=== PATIENT | female | born 1985 | race American Indian/Alaskan Native ===

== ENCOUNTER 2020-04-09 16:48 | Emergency (ER) | payer MEDICAID ==
[2020-04-09 17:13] LABS: Basophils # (Auto) 0.1 K/mm3 (0.0-0.1); Basophils % (Auto) 0.9 % (0.0-1.8); Eosinophils # (Auto) 0.1 K/mm3 (0.0-0.4); Eosinophils % (Auto) 1.9 % (0.0-4.3); Hematocrit 37.2 % (30.3-42.9); Hemoglobin 12.6 gm/dl (10.1-14.3); Lymphocytes # (Auto) 2.7 K/mm3 (1.2-5.4); Lymphocytes % (Auto) 38.9 % (13.4-35.0); Mean Corpuscular HGB Conc 34 % (30-34); Mean Corpuscular Volume 83 fl (79-97); Monocytes # (Auto) 0.4 K/mm3 (0.0-0.8); Monocytes % (Auto) 6.1 % (0.0-7.3); Platelet Count 224 K/mm3 (140-440); Red Blood Count 4.48 M/mm3 (3.65-5.03); Red Cell Distribution Width 14.6 % (13.2-15.2)
[2020-04-09 18:33] LABS: Bilirubin,Urine NEG (Negative); Blood,Urine LG (Negative); Color,Urine Yellow (Yellow); Mucus,Urine FEW /HPF; Protein,Urine <15 mg/dL mg/dL (Negative); Urobilinogen,Urine < 2.0 mg/dL (<2.0)
[2020-04-09 18:34] LABS: RBC,Urine > 182.0 /HPF (0.0-6.0)
--- NOTE | 2020-04-09 20:56 | Emergency Department Report ---
ED General Adult HPI - General Chief complaint: Vaginal Bleeding Stated complaint: 5 WKS /BLEEDING PUI?: No Time Seen by Provider: 04/09/20 20:43 Source: patient, RN notes reviewed Mode of arrival: Ambulatory Limitations: No Limitations - History of Present Illness Initial comments: The patient was evaluated in the emergency department for symptoms described in the history of present illness. He/she was evaluated in the context of the global COVID-19 pandemic, which necessitated consideration that the patient might be at risk for infection with the virus that causes COVID-19. Institutional protocols and algorithms that pertain to the evaluation of patients at risk for COVID-19 are in a state of rapid change based on information released by regulatory bodies including the CDC and federal and state organizations. These policies and algorithms were followed during the patient's care in the emergency department. Please note that these policies, procedures and recommendations changed on a rapid basis. Gynecology: Dr. Garcia The patient is a pleasant 34-year-old female. She is not known to myself. She is 2, para 0. Her past medical history includes fibroids, and prior elective termination of . Patient is currently today, and reports having had an ultrasound earlier on this week, this past Saturday, which showed fibroids, and "a sac." She presents to the ER today with complaint of nontraumatic vaginal bleeding with mild clots, and lower abdominal cramping. This is intermittent since 1 day. It does not radiate anywhere, does not have exacerbating or relieving factors. She denies all other symptoms. She denies trauma. She has not really done much in the way of heavy lifting. She is very worried that she is having a miscarriage. -: Gradual, hour(s) Radiation: abdomen Quality: other (Cramping and aching) Consistency: intermittent Improves with: none Worsens with: none Associated Symptoms: denies other symptoms - Related Data Allergies Allergy/AdvReac Type Severity Reaction Status Date / Time Penicillins Allergy Hives Verified 04/09/20 16:49 ED Review of Systems ROS: Stated complaint: 5 WKS /BLEEDING Other details as noted in HPI Comment: All other systems reviewed and negative Gastrointestinal: denies: nausea, vomiting, diarrhea Genitourinary: other (Vaginal clots and bleeding). denies: dysuria ED Past Medical Hx - Past Medical History Previous Medical History?: No - Surgical History Past Surgical History?: No ED Physical Exam - General Limitations: No Limitations, Other (Chaperoned by nurse Luda Rosen) General appearance: alert, in no apparent distress, obese - Head Head exam: Present: atraumatic, normocephalic - Eye Eye exam: Present: normal appearance, EOMI. Absent: nystagmus - ENT ENT exam: Present: normal exam, normal orophraynx, mucous membranes moist, normal external ear exam - Neck Neck exam: Present: normal inspection, full ROM. Absent: tenderness, meningismus - Respiratory Respiratory exam: Present: normal lung sounds bilaterally. Absent: respiratory distress, wheezes, rales, rhonchi, stridor, decreased breath sounds - Cardiovascular Cardiovascular Exam: Present: regular rate, normal rhythm, normal heart sounds. Absent: bradycardia, tachycardia, irregular rhythm, systolic murmur, diastolic murmur, rubs, gallop - GI/Abdominal GI/Abdominal exam: Present: soft. Absent: distended, tenderness, rebound, rigid, pulsatile mass - Extremities Exam Extremities exam: Present: normal inspection, full ROM, other (2+ pulses noted in the bilateral upper and lower extremities. There is no palpable cord. negative Homans sign. Muscular compartments are soft. The pelvis is stable.). Absent: pedal edema, calf tenderness - Back Exam Back exam: Present: normal inspection, full ROM. Absent: tenderness, CVA tenderness (R), CVA tenderness (L), paraspinal tenderness, vertebral tenderness - Neurological Exam Neurological exam: Present: alert, normal gait, other (No facial droop. Tongue midline. Extraocular movements intact bilaterally. Facial sensation intact to light touch in V1, V2, V3 distribution bilaterally. 5 and a 5 strength in 4 extremities. Sensation intact to light touch in 4 extremities.). Absent: motor sensory deficit - Psychiatric Psychiatric exam: Present: anxious - Skin Skin exam: Present: warm, dry, intact, normal color. Absent: rash ED Course Vital Signs 04/09/20 04/09/20 04/09/20 16:51 20:44 20:45 Temperature 98 F Pulse Rate 86 84 90 Respiratory 16 19 23 Rate Blood Pressure 144/77 Blood Pressure 147/82 [Right] O2 Sat by Pulse 97 100 100 Oximetry - Reevaluation(s) Reevaluation #1: 04/09/20 20:55 Differential diagnosis, including but limited to: Miscarriage, threatened versus incomplete Assessment and plan: 34-year-old female who reports that she is , reports having had an ultrasound earlier on this week which showed a gestational sac, now with abdominal cramping and reported vaginal bleeding. This is either a threatened miscarriage or incomplete miscarriage versus complete miscarriage. Patient's abdomen is soft and benign, without rebound, guarding or peritoneal signs. Her physical exam is fairly unremarkable, laboratory studies unremarkable, ultrasound is ordered, patient being transported to ultrasound at this time, patient has been counseled about the natural history of miscarriages. Reevaluation #2: 04/09/20 22:39 Ultrasound is reviewed and appreciated. No intrauterine or sac is identified. This is most likely an incomplete miscarriage. The patient states she will follow-up with her compensation programs manager in 2 days. She declines a pelvic examination in the emergency room, and states that she will follow-up with her compensation programs manager for this. She was counseled appropriately. Return precautions are reviewed. Final reassessment, belly remained soft, nontender, without rebound, guarding or peritoneal signs, patient noted to be watching videos on her cell phone, and in no acute distress. ED Medical Decision Making - Lab Data Result diagrams: 04/09/20 16:53 Vital Signs 04/09/20 16:51 Temperature 98 F Pulse Rate 86 Respiratory 16 Rate Blood Pressure 147/82 [Right] O2 Sat by Pulse 97 Oximetry Lab Results 04/09/20 04/09/20 04/09/20 Range/Units 16:53 16:53 16:53 WBC 7.0 (4.5-11.0) K/mm3 RBC 4.48 (3.65-5.03) M/mm3 Hgb 12.6 (10.1-14.3) gm/dl Hct 37.2 (30.3-42.9) % MCV 83 (79-97) fl MCH 28 (28-32) pg MCHC 34 (30-34) % RDW 14.6 (13.2-15.2) % Plt Count 224 (140-440) K/mm3 Lymph % (Auto) 38.9 H (13.4-35.0) % Beaver % (Auto) 6.1 (0.0-7.3) % Eos % (Auto) 1.9 (0.0-4.3) % Baso % (Auto) 0.9 (0.0-1.8) % Lymph # (Auto) 2.7 (1.2-5.4) K/mm3 Beaver # (Auto) 0.4 (0.0-0.8) K/mm3 Eos # (Auto) 0.1 (0.0-0.4) K/mm3 Baso # (Auto) 0.1 (0.0-0.1) K/mm3 Seg Neutrophils % 52.2 (40.0-70.0) % Seg Neutrophils # 3.6 (1.8-7.7) K/mm3 HCG, Qual Positive (Negative) HCG, Quant 75945 H (0-4) mIU/mL Urine Color (Yellow) Urine Turbidity (Clear) Urine pH (5.0-7.0) Ur Specific Gloster (1.003-1.030) Urine Protein (Negative) mg/dL Urine Glucose (UA) (Negative) mg/dL Urine Ketones (Negative) mg/dL Urine Blood (Negative) Urine Nitrite (Negative) Urine Bilirubin (Negative) Urine Urobilinogen (<2.0) mg/dL Ur Leukocyte Esterase (Negative) Urine WBC (Auto) (0.0-6.0) /HPF Urine RBC (Auto) (0.0-6.0) /HPF U Epithel Cells (Auto) (0-13.0) /HPF Urine Mucus /HPF Blood Type 04/09/20 04/09/20 Range/Units 16:53 Unknown WBC (4.5-11.0) K/mm3 RBC (3.65-5.03) M/mm3 Hgb (10.1-14.3) gm/dl Hct (30.3-42.9) % MCV (79-97) fl MCH (28-32) pg MCHC (30-34) % RDW (13.2-15.2) % Plt Count (140-440) K/mm3 Lymph % (Auto) (13.4-35.0) % Beaver % (Auto) (0.0-7.3) % Eos % (Auto) (0.0-4.3) % Baso % (Auto) (0.0-1.8) % Lymph # (Auto) (1.2-5.4) K/mm3 Beaver # (Auto) (0.0-0.8) K/mm3 Eos # (Auto) (0.0-0.4) K/mm3 Baso # (Auto) (0.0-0.1) K/mm3 Seg Neutrophils % (40.0-70.0) % Seg Neutrophils # (1.8-7.7) K/mm3 HCG, Qual (Negative) HCG, Quant (0-4) mIU/mL Urine Color Yellow (Yellow) Urine Turbidity Clear (Clear) Urine pH 7.0 (5.0-7.0) Ur Specific [place]oster 1.011 (1.003-1.030) Urine Protein <15 mg/dl (Negative) mg/dL Urine Glucose (UA) Neg (Negative) mg/dL Urine Ketones Neg (Negative) mg/dL Urine Blood Lg (Negative) Urine Nitrite Neg (Negative) Urine Bilirubin Neg (Negative) Urine Urobilinogen < 2.0 (<2.0) mg/dL Ur Leukocyte Esterase Neg (Negative) Urine WBC (Auto) 4.0 (0.0-6.0) /HPF Urine RBC (Auto) > 182.0 (0.0-6.0) /HPF U Epithel Cells (Auto) 1.0 (0-13.0) /HPF Urine Mucus Few /HPF Blood Type O POSITIVE - Radiology Data Radiology results: pending, report reviewed, image reviewed Print Report Referring Physician: ATUL COOK Patient Name: BELLA MARCUM Date of : 1985 Sex: Female Report Date: 2020-04-09 Report Status: Finalized Findings [address] [address] Ultrasound Report Signed Patient: BELLA MARCUM MR#: [id number] : 1985 Acct:[id number] Age/Sex: 34 / F ADM Date: 04/09/20 Loc: ED Attending Dr: Ordering Physician: WALTER GRIFFITH Date of Service: 04/09/20 Procedure(s): US OB transvaginal Accession Number(s): [id number] cc: WATLER GRIFFITH EXAMINATION: Obstetrical Ultrasound INDICATION: Pelvic pain and cramping in early COMPARISON: None FINDINGS: The uterus is enlarged measuring 15.2 x 8.3 x 10.4 cm. No intrauterine is visualized. The endometrial complex is thickened to a maximum thickness of 4 cm. Mixed echogenic masslike area is seen within the anterior aspect of the uterus measuring 4 cm. The bilateral adnexal regions are not well visualized. There is no free pelvic fluid. IMPRESSION: 1. No evidence of intrauterine . Diagnostic considerations include failed or failing , too early to visualize or less likely ectopic . Please correlate with patient's clinical circums tances. 2. Mixed echogenic masslike area within the anterior aspect of the uterus most likely representing a uterine fibroid. Signer Name: Keli Bernard MD Signed: 04/09/2020 9:47 PM Workstation Name: [id number] Transcribed By: LEI Dictated By: Keli Bernard MD Electronically Authenticated By: Keli Bernard MD Signed Date/Time: 04/09/202146 DD/ 43 Critical care attestation.: If time is entered above; I have spent that time in minutes in the direct care of this critically ill patient, excluding procedure time. ED Disposition Clinical Impression: Miscarriage Disposition: DC-01 TO HOME OR SELFCARE Is pt being admited?: No Does the pt Need Aspirin: No Condition: Stable Instructions: Spontaneous Miscarriage (ED) Additional Instructions: Please continue current outpatient medications. Rest, avoid heavy lifting, avoid strenuous physical activities, and avoid sexual activity/intimacy. Recommend follow-up in 2 days, either with your compensation programs manager, or in this emergency room, for repeat physical examination and ultrasound. Patient may take [id number] acetaminophen as needed for pain. Please return to the emergency room right away with new pain, worsened pain, migration of pain, projectile vomiting, change in mental status, confusion, inability tolerate liquid feeds, sudden severe new bleeding inability to tolerat e liquid feeds, or any new, worsened or different symptoms not present on the initial emergency room evaluation. Referrals: RAPHAEL GARCIA MD [Primary Care Provider] - 3-5 Days Forms: Work/School Release Form(ED)
--- NOTE | 2020-04-09 21:52 | Ultrasound Report ---
EXAMINATION: Obstetrical Ultrasound INDICATION: Pelvic pain and cramping in early COMPARISON: None FINDINGS: The uterus is enlarged measuring 15.2 x 8.3 x 10.4 cm. No intrauterine is visualized. The e ndometrial complex is thickened to a maximum thickness of 4 cm. Mixed echogenic masslike area is seen within the anterior aspect of the uterus measuring 4 cm. The bilateral adnexal regions are not well visualized. There is no free pelvic fluid. IMPRESSION: 1. No evidence of intrauterine . Diagnostic considerations include failed or failing pregna ncy, too early to visualize or less likely ectopic . Please correlate with patient 's clinical circumstances. 2. Mixed echogenic masslike area within the anterior aspect of the uterus most likely representing a uterine fibroid. Signer Name: Keli Bernard MD Signed: 04/09/2020 9:47 PM Workstation Name: [id number]
[2020-04-09 23:52] VITALS: BP 144/77
== END 2020-04-09 23:30 | disposition home or self-care (01) ==
LOC: ED 16:48
DX: O03.9 Complete or unspecified spontaneous abortion without complication (principal); Z88.0 Allergy status to penicillin; Z3A.01 Less than 8 weeks gestation of pregnancy
CPT/HCPCS: 36415; 76801; 76802; 76817; 81001; 84702; 84703; 85025; 86900; 86901